=== PATIENT | male | born 2000 | race African-American/Black ===

== ENCOUNTER 2018-03-09 09:12 | Day surgery (SDC) | payer OTHER ==
[~2018-03-09 09:12] MED LIST: Buffered Lidocaine 0.9% SYRIN* 5 ML/SYR SYRINGE INTRADERM ONE
[2018-03-09] MEDS ORDERED: ceFAZolin 2 GM in NS PREMIX(*) 2 GM/100 ML BAG IVPB ONE (09:50)
[2018-03-09] MEDS ORDERED: Midazolam* 1 MG/ML 5 ML VIAL (5 MG) ONE (10:29)
[2018-03-09] MEDS ORDERED: fentaNYL* 50 MCG/ML 2 ML VIAL (100 MCG VIAL) ONE ×4 (10:29→13:37)
[2018-03-09] MEDS ORDERED: Propofol* 10 MG/ML 20 ML BTL IV PUSH ONE (10:30)
[2018-03-09] MEDS ORDERED: Lidocaine 2% PF * 5 ML VIAL ONE (10:33)
[2018-03-09] MEDS ORDERED: Midazolam* 1 MG/ML 2 ML VIAL (2 MG) ONE (10:58)
[2018-03-09] MEDS ORDERED: Famotidine IV* 10 MG/ML 2 ML (20 mg) ONE (11:02)
[2018-03-09] MEDS ORDERED: Dexamethasone IV* 4 MG/ML 1 ML (4 MG) ONE (11:02)
[2018-03-09] MEDS ORDERED: ROPIVACAINE 5 MG/ML 30 ML BTL (0.5%) ONE (11:11)
[2018-03-09] MEDS ORDERED: Esmolol* 10 MG/ML 10 ML (100 mg) ONE (13:03)
[2018-03-09] MEDS ORDERED: fentaNYL* 50 MCG/ML 2 ML VIAL (100 MCG VIAL) IV PRN (13:13)
[2018-03-09] MEDS ORDERED: DiMENhydriNATE IV* 50 MG/ML VIAL IV PUSH PRN (13:13)
[2018-03-09] MEDS ORDERED: Naloxone* 0.4 MG/ML 1 ML VIAL IV PRN (13:13)
[2018-03-09] MEDS ORDERED: HYDROmorphone INJ1* 1 MG/ML SYRINGE IV PRN (13:13)
[2018-03-09] MEDS ORDERED: Ketorolac INJ* 30 MG/ML 1 ML VIAL ONE (13:31)
[2018-03-09] MEDS ORDERED: Ondansetron INJ* 2 MG/ML VIAL ONE (13:31)
[2018-03-09 15:32] VITALS: BP 138/88
--- NOTE | 2018-03-10 05:00 | OP ---
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 ANESTHESIOLOGIST: Dr. Centeno. ANESTHESIA: General. PRE-OP DIAGNOSIS: Left scaphoid nonunion humpback deformity. POST-OP DIAGNOSIS: Left scaphoid nonunion humpback deformity. OPERATIVE PROCEDURE: Repair of left scaphoid nonunion including correction of humpback deformity with autologous distal radius corticocancellous bone graft. INDICATIONS: Raffi had the aforementioned nonunion, it's developed some humpback deformity. I talked to him about risks and benefits of surgery. He had wanted to proceed with surgery. He understands there is a risk of nonunion despite surgery and risk of persistent pain and discomfort in the wrist ultimately requiring additional surgery. He wants to proceed. ESTIMATED BLOOD LOSS: 2 mL. COMPLICATIONS: None. FINDINGS: See above and below. DESCRIPTION OF PROCEDURE: Raffi was seen in the preoperative holding area. The correct side, site, and procedure were identified. We came back to the operating room where the arm was prepped and draped in the usual fashion. A time- out was performed. The arm was exsanguinated with the Esmarch and the tourniquet inflated to 250 mmHg. I went ahead and made an oblique incision over the scaphoid bone on the palmar side of the wrist. This was brought back proximally in line with the FCR tendon for a centimeter or two. The FCR tendon sheath was opened and the sheath was released. The FCR tendon was retracted ulnarly. The subsheath was released to expose the volar wrist capsule. The ligaments were raised as a radially based flap and then brought back in line with the pronator quadratus fascia radially and proximally. The scaphoid was exposed. There was vin humpback deformity noted. I went ahead at this point and placed a 0.62 K-wire dorsally traversing the radial carpal joint up into the lunate with the lunate out of extension so as to correct DISI deformity. The wire was then clipped below the skin. I then turned the hand back over and was able to place a 0.62 K-wire in the distal pole of the scaphoid and correct the flexion and pronation of the distal fragment. The curette, the rongeur and 2 mm kentrell were used to debride the nonunion until I had what look like some punctate bleeding on either side of the cancellous bone in the proximal and distal poles. This happened with about 1 cm defect volarly. The site was prepared to receive the cortical cancellous graft. I then came dorsally and made a 3 to 4 cm longitudinal incision over Jaswant's tubercle. The full thickness flaps were raised off the extensor retinaculum. The retinaculum was incised in line with the third dorsal compartment and the EPL tendon was transposed and retracted radially. Subperiosteal dissection was done off of Jaswant's tubercle and the second dorsal compartment was retracted radially. I then marked out a 1 cm x 1 cm area and the graft was harvested using the sagittal saw followed by the curved osteotome. A very nice piece of cortical cancellous graft was harvested including Jaswant's tubercle. I then contoured my graft and placed into the recipient site, it fitted very nicely. Once I let off the traction, the graft became very stable without any fixation as it was wedged between the proximal and distal poles of the scaphoid. I went ahead and placed packs and cancellous graft around the edges. Then I excised very small portion of the trapezium so that I could place a guidewire in retrograde fashion for mini Acutrak screw in the center position. This was confirmed on fluoroscopy. I then overdrilled the wire and then placed a 26-mm mini Acutrak screw. Initially, I attempted to place a 24 mm but it became obvious that it was going to be too short and so I then placed a 26-mm screw. Ultimately, there was excellent compression. The graft was completely stable. I took little bit more cancellous graft and I packed it around the edges. Everything was extremely tight and so I cannot really pack much more. The provisional K wires had all been removed. At this point, I got final fluoroscopic imaging. I repaired the volar capsular ligaments with 4-0 Ethibond suture. The extensor retinaculum was repaired with 4-0 Ethibond suture leaving the EPL tendon transposed. The wounds had all been irrigated out. Skin was closed with 4-0 Monocryl and Steri-Strips. Ropivacaine 0.5% was infiltrated all around the incisions. A thumb spica splint was then applied leaving the IP joint free including both dorsal and volar flaps. Tourniquet was deflated and the hand pinked up immediately. He was then awoken up and taken to the recovery room in stable condition. [id number]/[facility] #: [id number] MTDD
--- NOTE | 2018-03-14 13:07 | RAD ---
INDICATION: Left wrist scaphoid nonunion repair with left distal radius bone graft COMPARISONS: None relevant TECHNIQUE: Fluoroscopy was provided for a surgical procedure. Total fluoroscopy time is: 1 minute, 14 seconds FINDINGS: Spot images demonstrate internal fixation of the scaphoid with postsurgical change to the distal radius. IMPRESSION: FLUOROSCOPY WAS PROVIDED FOR A SURGICAL PROCEDURE CPT II Codes: G9500
== END 2018-03-09 15:20 | disposition home or self-care (01) ==
LOC: OREAST 09:12
PROVIDERS: ATTEND Orthopaedic Surgery Hand Surgery
DX: S62.002K Unspecified fracture of navicular [scaphoid] bone of left wrist, subsequent encounter for fracture with nonunion (principal); W10.9XXD Fall (on) (from) unspecified stairs and steps, subsequent encounter; Y92.9 Unspecified place or not applicable
CPT/HCPCS: 76000; C1713; C1776; J0690; J1100; J1885; J2250; J2405; J2704; J2795; J3010